=== PATIENT | female | born 1970 | race Caucasian/White ===

== ENCOUNTER 2016-12-06 07:51 | Day surgery (SDC) | payer BC ==
[2016-12-06] VITALS (8 sets, daily range): BP systolic 96–128; BP diastolic 51–81; PULSE 66–99; RESP 16–20; TEMP 97.7–97.9; O2SAT 97–100
[~2016-12-06] VITALS: Ht 165.1 cm; Wt 59.1 kg
[2016-12-06] MEDS ORDERED: NORE1CAP PO (08:21)
[2016-12-06] MEDS ORDERED: FEXO1TAB97 PO (08:21)
[2016-12-06] MEDS ORDERED: SODIUM CHLORIDE 5 ML FLUSH PRN IVF (08:45)
[2016-12-06] MEDS ORDERED: SODIUM CHLOR 0.9% 1000 ML IV SCH (08:45)
[2016-12-06] MEDS ORDERED: SODIUM CHLORIDE 5 ML FLUSH BID IVF SCH (09:00)
[2016-12-06] MEDS ORDERED: LIDOCAINE 1%/EPINEPHrine 1:100,000 SOLN 20 ML VIAL ONE ×2 (09:27→10:08)
[2016-12-06] MEDS ORDERED: fentaNYL CITRATE 250 MCG/5 ML AMP IV ONE (09:41)
[2016-12-06] MEDS ORDERED: MIDAZOLAM HCL 5 MG/5 ML VIAL IV ONE (09:41)
[2016-12-06] MEDS ORDERED: oxyCODONE/ACETAMINOPHEN 5 MG/325 MG TAB PO PRN (10:45)
--- NOTE | 2016-12-06 12:50 | RADRPT ---
EXAM DATE/TIME: 12/06/2016 12:36 [facility] COMPARISON: No previous studies available for comparison. INDICATIONS : Post lung Biopsy MEDICAL HISTORY : None. SURGICAL HISTORY : None. ENCOUNTER: Initial ACUITY: 1 day PAIN SCORE: 0/10 LOCATION: Bilateral chest FINDINGS: A single frontal expiratory view of the chest was performed. The lungs are symmetrically aerated and clear. No evidence of pneumothorax. Mediastinal structures are in the midline. The cardio-mediastinal contours and bronchopulmonary markings are unremarkable for an expiratory exam . Osseous structures are intact. CONCLUSION: There is no pneumothorax following biopsy on the right. Ricardo Guerin MD FACR on December 06, 2016 at 12:48 Board Certified Radiologist. This report was verified electronically.
--- NOTE | 2016-12-06 14:36 | RADRPT ---
EXAM DATE/TIME: 12/06/2016 09:51 [facility] COMPARISON: No previous studies available for comparison. INDICATIONS : Right lung mass. SEDATION TIME: 40 minutes BIOPSY SITE: Right lung MEDICATION(S): 1.) 3 mg midazolam (Versed) IV 2.) 150 mcg fentanyl (Sublimaze) IV DEVICE(S): 1.) 20 gauge [place] core biopsy needle 2.) 18 gauge Henriquez blunt needle 3.) 22 gauge [place] MEDICAL HISTORY : Asthma. SURGICAL HISTORY : None. ENCOUNTER: Initial ACUITY: 1 day PAIN SCORE: 0/10 LOCATION: Right chest A total of six core specimen(s) were obtained and sent to the laboratory for pathologic evaluation. PROCEDURE: 1. CT guided lung biopsy. 2. Conscious sedation with continuous EKG and oximetry monitoring. 3. EKG and oximetry remained stable throughout the procedure. Prior to the procedure informed consent was obtained. Any appropriate prior imaging studies were rev iewed. The site was prepped in a sterile fashion. Full sterile technique was used, including cap, mask, shweta rile gloves and gown and a large sterile sheet. Hand hygiene and 2% chlorhexidine and/or betadine/al cohol prep was utilized per protocol for cutaneous antisepsis. The skin and subcutaneous tissues wer e infiltrated with local anesthetic solution. Under CT guidance an 18 gauge body was placed down to the lesion. 6 different needles were used in a n attempt to obtain the pathological specimen. This mass is very hard and proved to be all but impo ssible to obtain distended material from. Thin section 1.3 mm axial slices reveals faint areas of calcification in this lesion that would be co nsistent with hamartoma. 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 Follow-up CT scan reveals no pneumothorax. Conscious sedation was performed with the prescribed dosages and duration as above. The patient miles ated the procedure well and there were no complications. EKG and oximetry remained stable throughout the procedure. The patient was sent to Radiology Outpatient Unit in stable condition. CONCLUSION: Uncomplicated CT guided biopsy. Please see above discussion. Ricardo Guerin MD FACR on December 06, 2016 at 14:03 Board Certified Radiologist. This report was verified electronically.
== END 2016-12-06 14:30 | disposition home or self-care (01) ==
LOC: HRAD 07:51 → HRIP 07:54 → EDSTATUS 08:00 → HRAD 14:30
DX: R91.8 Other nonspecific abnormal finding of lung field (principal)
CPT/HCPCS: 32405; 71010; 77012; 88305; 88333; J2250; J3010; J7030; 99152; 99153